=== PATIENT | male | born 1990 | race American Indian/Alaskan Native ===

== ENCOUNTER 2017-05-06 14:20 | Emergency (ER) | payer SELFPAY ==
[2017-05-06 14:26] VITALS: BP 128/78
[2017-05-06 14:55] LABS: Bilirubin,Urine NEG (Negative); Blood,Urine NEG (Negative); Color,Urine Yellow (Yellow); Mucus,Urine FEW /HPF; Nitrite,Urine NEG (Negative); Protein,Urine <15 mg/dL mg/dL (Negative)
[2017-05-06] MEDS ORDERED: XYLOCAINE 1% MPF 5 mL INFILTRATI ONE (15:56)
[2017-05-06] MEDS ORDERED: VIBRAMYCIN PO ONE (15:56)
[2017-05-06] MEDS ORDERED: ROCEPHIN IM ONE (15:56)
[2017-05-06] MEDS ORDERED: MOTRIN PO ONE (15:56)
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
== END 2017-05-06 16:48 | disposition home or self-care (01) ==
LOC: ED 14:20
DX: N34.2 Other urethritis (principal); M54.5 Low back pain
CPT/HCPCS: 81001; 96372; 99283; J0696